=== PATIENT | female | born 1945 | race Caucasian/White ===

== ENCOUNTER 2017-04-07 08:46 | Inpatient (IN) | payer OTHER, BC ==
[~2017-04-07] VITALS: Ht 162.6 cm; Wt 65.4 kg
[~2017-04-07 08:46] MED LIST: ACIDOPHILUS1 EAC3 PO; ADVIL,NUPRIN,M200 MG PO; FERROUS SULFAT325 MG PO; L-LYSINE500 M1 PO; MULTIPLE VITAM1 EACH PO; TYLENOL SINUS1 EA16 PO
[2017-04-07 10:56] VITALS: BP 156/70
[2017-04-07 17:41] VITALS: BP 133/68
[2017-04-07 19:52] VITALS: BP 127/68
[2017-04-08 00:30] VITALS: BP 118/59
[2017-04-08 04:24] VITALS: BP 111/59
[2017-04-08 05:59] LABS: HEMATOCRIT 32.5 % (36.0-46.0); MCV 93.9 FL (83-99)
[2017-04-08 06:24] LABS: ANION GAP 6 MEQ/L (2-14); CHLORIDE 102 MEQ/L (99-109); GFR ESTIMATE (CALCULATED) > 59 mL/min/; GLUCOSE 143 mg/dL (70-99); POTASSIUM 3.7 MEQ/L (3.7-5.4); SAMPLE HEMOLYSIS CHECK 0; SAMPLE ICTERIC CHECK 0; SAMPLE LIPEMIA CHECK 0; SODIUM 137 MEQ/L (136-147); UREA NITROGEN (BUN) 9 mg/dL (9-23)
[2017-04-08 08:16] VITALS: BP 105/55
[2017-04-08 12:00] VITALS: BP 99/53
[2017-04-08 15:37] VITALS: BP 110/54
[2017-04-08 19:51] VITALS: BP 118/56
[2017-04-09 00:30] VITALS: BP 107/53
[2017-04-09 04:08] VITALS: BP 114/55
[2017-04-09 05:32] LABS: HEMATOCRIT 31.2 % (36.0-46.0); MCV 93.1 FL (83-99)
[2017-04-09 08:01] VITALS: BP 110/56
[2017-04-09] MEDS ORDERED: BENADRYL25 MG PO (09:50)
[2017-04-09] MEDS ORDERED: SENNA PLUS TAB1 EACH PO (09:51)
[2017-04-09] MEDS ORDERED: XARELTO10 MG PO (09:54)
[2017-04-09] MEDS ORDERED: CELECOXIB200 MG PO (09:54)
[2017-04-09] MEDS ORDERED: ROBAXIN500 MG PO (09:54)
[2017-04-09] MEDS ORDERED: OXYCODONE HCL5 MG PO (09:54)
[2017-04-09 11:48] VITALS: BP 119/57
== END 2017-04-09 13:54 | DRG 470 ==
LOC: 2SOUTH 08:46 → 3WEST 17:29
PROVIDERS: Orthopaedic Surgery Sports Medicine
DX: M17.11 Unilateral primary osteoarthritis, right knee (principal); M24.561 Contracture, right knee; M21.261 Flexion deformity, right knee; M21.161 Varus deformity, not elsewhere classified, right knee; Z85.3 Personal history of malignant neoplasm of breast; Z90.710 Acquired absence of both cervix and uterus
CPT/HCPCS: 73560; 80048; 85014; 85018; 93971; C1713; J0131; J0690; J1100; J1170; J1885; J2250; J2405; J7050; L1820

== ENCOUNTER 2017-05-06 10:26 | Emergency (ER) | payer OTHER, BC ==
[~2017-05-06] VITALS: Ht 162.6 cm; Wt 62.7 kg
[~2017-05-06 10:26] MED LIST changes: +BENADRYL25 MG PO; +CELECOXIB200 MG PO; +OXYCODONE HCL5 MG PO; +ROBAXIN500 MG PO; +SENNA PLUS TAB1 EACH PO; +XARELTO10 MG PO
[2017-05-06 11:32] LABS: HEMATOCRIT 35.9 % (36.0-46.0); MCH 30.4 PG (29.0-34.0); MCHC 32.9 G/DL (30.0-36.0); MCV 92.5 FL (83-99); MEAN PLAT.VOLUME 10.1 uM^3 (9.5-12.4); PLATELET COUNT 330 K/uL (156-360); RBC DIS.WIDTH-CV 11.9 % (11.8-14.6); RBC DIS.WIDTH-SD 40.1 % (39-53); RED BLOOD COUNT 3.88 M/uL (3.80-5.20); WHITE BLOOD COUNT 10.6 K/uL (4.1-10.2)
[2017-05-06 11:40] LABS: CHLORIDE 104 mEq/L (99-109); POTASSIUM 3.7 mEq/L (3.7-5.4); SODIUM 139 mEq/L (136-147)
[2017-05-06 11:42] LABS: GLUCOSE 145 mg/dL (70-99)
[2017-05-06 11:43] LABS: ANION GAP 10 MEQ/L (2-14)
[2017-05-06 11:44] LABS: TOTAL BILIRUBIN 0.3 mg/dL (0.0-1.0)
[2017-05-06 11:45] LABS: ALKALINE PHOSPHATASE 92 IU/L (3-129)
[2017-05-06 11:46] LABS: GFR ESTIMATE (CALCULATED) > 59 mL/min/
[2017-05-06 11:47] LABS: UREA NITROGEN (BUN) 14 mg/dL (9-23)
[2017-05-06 12:59] LABS: ADD MIUA? YES; BILIRUBIN NEGATIVE; BLOOD LARGE; COLOR AMBER ((YELLOW)); GLUCOSE (STRIP) NEGATIVE; KETONES NEGATIVE; LEUKOCYTES NEGATIVE; NITRITE NEGATIVE; PROTEIN (STRIP) 100; SPECIFIC GRAVITY 1.027 (1.000-1.030); UROBILINOGEN 0.2 MG/DL (0.2-1.0)
[2017-05-06 13:00] LABS: EPITHELIAL CELLS 1+ /HPF; RED BLOOD CELLS TNTC /HPF (0-5); WHITE BLOOD CELLS 15-20 /HPF (0-5)
[2017-05-06 13:01] LABS: BACTERIA 3+ /HPF; CALCIUM OXALATE CRYSTALS 2+ /HPF; CRYSTALS PRESENT; MUCUS NONE SEEN /LPF; UCUL ADDED? YES
[2017-05-06] MEDS ORDERED: KEFLEX500 MG PO (13:25)
[2017-05-06 13:42] VITALS: BP 132/79
== END 2017-05-06 13:44 | disposition home or self-care (01) ==
LOC: EME 10:26
PROVIDERS: Nurse Practitioner Family
DX: N39.0 Urinary tract infection, site not specified (principal); R31.9 Hematuria, unspecified; N20.0 Calculus of kidney; Z79.01 Long term (current) use of anticoagulants; Z96.651 Presence of right artificial knee joint
CPT/HCPCS: 74020; 74176; 80053; 81003; 85027; 87077; 87086; 87186; 99281; 99284